=== PATIENT | male | born 1995 | race Caucasian/White ===

== ENCOUNTER 2017-03-24 13:54 | Emergency (ER) | payer MEDICAID ==
[~2017-03-24] VITALS: Ht 185.4 cm; Wt 70.2 kg
[~2017-03-24 13:54] MED LIST: ONDA4TAB6 PO
[2017-03-24] MEDS ORDERED: AZIT250T2 PO (14:14)
[2017-03-24 14:24] VITALS: BP 126/81
== END 2017-03-24 14:25 | disposition home or self-care (01) ==
LOC: ER 13:54
DX: J06.9 Acute upper respiratory infection, unspecified (principal)
CPT/HCPCS: 99283

== ENCOUNTER 2024-04-15 07:39 | Emergency (ER) | payer BC, MEDICAID ==
[~2024-04-15] VITALS: Ht 185.4 cm; Wt 85.4 kg
[~2024-04-15 07:39] MED LIST changes: +ALBU6.7H14 INH; +LORA10TA61 PO; +METH4TAB3 PO
[2024-04-15 12:45] VITALS: BP 120/70; PULSE 84; RESP 16; TEMP 98.9; O2SAT 98
== END 2024-04-15 12:59 | disposition home or self-care (01) ==
LOC: ER 07:40
DX: R50.9 Fever, unspecified (principal); R41.0 Disorientation, unspecified; Z79.899 Other long term (current) drug therapy; Z20.822 Contact with and (suspected) exposure to COVID-19
CPT/HCPCS: 36415; 71045; 87502; 87503; 87811; 99285